=== PATIENT | female | born 1960 | race Two or more races ===

== ENCOUNTER 2025-03-04 07:00 | Outpatient (CLI) | payer OTHER ==
[~2025-03-04] VITALS: Ht 167.6 cm; Wt 98.4 kg
[2025-03-04] MEDS ORDERED: METFORMIN HCL500 M3 PO (08:22)
[2025-03-04] MEDS ORDERED: DIOVAN160 M1 PO (08:23)
[2025-03-04] MEDS ORDERED: LIPITOR20 MG (08:24)
[2025-03-04] MEDS ORDERED: XELPROS2.5 ML (08:25)
[2025-03-04] MEDS ORDERED: TIMOLOL BRIMONI (08:25)
[2025-03-04 08:26] VITALS: BP 180/102
[2025-03-04] MEDS ORDERED: PEPCID AC20 MG (08:26)
[2025-03-04] MEDS ORDERED: L-THEANINE200 MG PO (08:26)
[2025-03-04 09:04] LABS: BASO % 0.6 % (0.1-1.2); EOS # 0.49 (0.04-0.54); EOS % 7.4 % (0.7-7.0); HEMATOCRIT 42.2 % (34.1-44.9); HEMOGLOBIN 13.9 g/dL (11.2-15.7); LYMPH # 1.85 (1.18-3.74); LYMPH % 28.1 % (19.3-53.1); MEAN CORPUSCULAR HEMOGLOBIN 28.3 pg (25.6-32.2); MONO # 0.31 (0.24-0.82); MONO % 4.7 % (4.7-12.5); NEUT # 3.87 (1.56-6.13); NEUT % 58.7 % (34.0-71.1); PLATELET COUNT 255 K/uL (163-369); RED BLOOD COUNT 4.91 M/uL (3.93-5.22); RED CELL DISTRIBUTION WIDTH 13.3 % (11.6-14.4)
[2025-03-04 09:05] LABS: URINE APPEARANCE Clear; URINE BILIRRUBIN Negative (NEGATIVE); URINE BLOOD Negative; URINE COLOR Yellow; URINE GLUCOSE Negative (NEGATIVE); URINE KETONE Negative (NEGATIVE); URINE LEUKOCYTE Small; URINE NITRATE Negative; URINE PROTEIN Negative (NEGATIVE); URINE UROBILINOGEN 0.2 E.U./dl
[2025-03-04 09:09] LABS: URINE BACTERIA 31.8 uL (0.0-1933); URINE EPITHELIAL CELLS 5.5 uL (0.0-38.8); URINE RBC 6.3 uL (0.0-20.8); URINE WBC 71.3 uL (0.0-23.2)
[2025-03-04 09:39] LABS: INR 1.02; PARTIAL THROMBOPLASTIN TIME 26.6 SECONDS (22.0-34.0); PROTHROMBIN TIME 11.1 SECONDS (9.0-11.5)
[2025-03-04 09:39] LABS: URINE CAST 0.14 uL (0.0-1.40)
[2025-03-04 09:45] LABS: ALBUMIN 3.7 gm/dL (3.4-5.0); BILIRUBIN TOTAL 1.21 mg/dL (0.3-1.2); CALCIUM 9.3 mg/dL (8.5-10.1); CREATININE SERUM 0.63 mg/dL (0.55-1.02); GFR 94.84; GLOBULINA 3.2 G/DL (2.4-3.5); POTASSIUM 4.58 mEq/L (3.5-5.1); TOTAL PROTEIN 6.9 gm/dL (6.4-8.2)
== END 2025-03-04 07:15 | disposition home or self-care (01) ==
LOC: LAB 07:00 → ADM 07:15 → LAB 07:15 → CIR.AMB 03-10 07:00 → EDSTATUS 03-10 07:15
PROVIDERS: ATTEND Obstetrics & Gynecology
DX: N95.0 Postmenopausal bleeding (principal); D25.0 Submucous leiomyoma of uterus; N84.0 Polyp of corpus uteri

== ENCOUNTER 2025-06-16 06:00 | Day surgery (SDC) | payer OTHER ==
[2025-06-10 08:43] VITALS: BP 100/70
[2025-06-10 09:02] LABS: BASO % 0.5 % (0.1-1.2); EOS # 0.47 (0.04-0.54); EOS % 6.3 % (0.7-7.0); LYMPH # 2.06 (1.18-3.74); LYMPH % 27.8 % (19.3-53.1); MEAN PLATELET VOLUME 10.70 fl (9.4-12.4); MONO # 0.45 (0.24-0.82); MONO % 6.1 % (4.7-12.5); NEUT # 4.38 (1.56-6.13); NEUT % 59.2 % (34.0-71.1); RED CELL DISTRIBUTION WIDTH 13.7 % (11.6-14.4)
[2025-06-10 09:05] LABS: URINE APPEARANCE Clear; URINE BILIRRUBIN Small (NEGATIVE); URINE BLOOD Negative; URINE COLOR Dark Yellow; URINE GLUCOSE Negative (NEGATIVE); URINE KETONE Trace (NEGATIVE); URINE LEUKOCYTE Large; URINE NITRATE Negative; URINE PROTEIN 30 (NEGATIVE); URINE UROBILINOGEN 0.2 E.U./dl
[2025-06-10 09:07] LABS: URINE BACTERIA 140.4 uL (0.0-1933); URINE CAST 4.54 uL (0.0-1.40); URINE EPITHELIAL CELLS 7.3 uL (0.0-38.8); URINE RBC 21.8 uL (0.0-20.8); URINE WBC 536.8 uL (0.0-23.2)
[2025-06-10 09:28] LABS: ALT/SGPT 33.0 U/L (12-78); AST/SGOT 11.0 U/L (15-37); BILIRUBIN TOTAL 1.29 mg/dL (0.3-1.2); BUN CREA RATIO 18.0 (7.0-25.0); CREATININE SERUM 0.82 mg/dL (0.55-1.02); GFR 69.96; GLOBULINA 3.7 G/DL (2.4-3.5); GLUCOSE FASTING 106.0 mg/dL (65-100); OSMOLALITY SERUM 290.0 MOSM/KG (275-295)
[2025-06-10 09:43] LABS: INR 1.01
[2025-06-10 09:55] LABS: URINE CRYSTALS MANY /HPF
[2025-06-10 09:56] LABS: URINE MUCUS HEAVY
[~2025-06-16] VITALS: Ht 167.6 cm; Wt 97.5 kg
[~2025-06-16 06:00] MED LIST: CLONAZEPAM0.5 MG PO; DIOVAN160 M1 PO; L-THEANINE200 MG PO; LIPITOR20 MG; METFORMIN HCL500 M3 PO; PAXIL20 MG PO; PEPCID AC20 MG; TIMOLOL BRIMONI; VISTARIL50 MG/ML PO; XELPROS2.5 ML
[2025-06-16] MEDS ORDERED: CEFAZOLIN SODIUM 1,000 MG VIAL ONE (07:05)
[2025-06-16] MEDS ORDERED: POVIDONE-IODINE 118 ML BOTT TOP ONE (07:18)
[2025-06-16] MEDS ORDERED: DOXYCYCLINE HY100 M2 PO (09:07)
[2025-06-16] MEDS ORDERED: IBU600 MG PO (09:08)
[2025-06-16] MEDS ORDERED: MORPHINE SULFATE 4 MG/ML VIAL IV ONE (11:25)
== END 2025-06-16 14:35 | disposition home or self-care (01) ==
LOC: CIR.AMB 06:00
PROVIDERS: ATTEND Obstetrics & Gynecology
DX: D25.0 Submucous leiomyoma of uterus (principal); N84.0 Polyp of corpus uteri; N95.0 Postmenopausal bleeding